=== PATIENT | male | born 1965 | race Caucasian/White ===

== ENCOUNTER 2017-06-07 20:11 | Emergency (ER) | payer OTHER ==
[2017-06-07] MEDS ORDERED: NS 0.9% 1000 ML* 1,000 ML IV ONE (20:46)
[2017-06-07] MEDS ORDERED: Meclizine TAB* 12.5 MG PO ONE (20:48)
[2017-06-07] MEDS ORDERED: Aspirin Low Dose CHEW TAB* 81 MG PO ONE (20:48)
[2017-06-07] MEDS ORDERED: Dexamethasone IV* 4 MG/ML 1 ML (4 MG) IV SLOW PU ONE (20:48)
[2017-06-07 20:58] LABS: ABS Basophils 0 10^3/ul (0-0.2); ABS Eosinophils 0.2 10^3/ul (0-0.6); ABS Lymphocytes 0.5 10^3/ul (1.0-4.8); ABS Monocytes 0.7 10^3/ul (0-0.8); ABS Neutrophils 5.7 10^3/ul (1.5-7.7); ABS Nucleated RBC 0 10^3/ul; Hematocrit 44 % (42-52); Hemoglobin 15.1 g/dl (14.0-18.0); Lymphocyte % 6.9 % (25-47); Mean Corpuscular HGB Conc 34 g/dl (31-36); Mean Corpuscular Hemoglobin 29 pg (27-31); Mean Corpuscular Volume 84 fL (80-94); Mean Platelet Volume 9 um3 (7.4-10.4); Nucleated Red Blood Cells % 0; Platelet Count 177 10^3/ul (150-450); Red Blood Count 5.22 10^6/ul (4.0-5.4); Red Cell Distribution Width 13 % (10.5-15); White Blood Count 7.1 10^3/ul (3.5-10.8)
[2017-06-07 21:13] LABS: EGFR Non-African American 133.7 (>60)
--- NOTE | 2017-06-07 21:16 | RAD ---
Indication: Chest pain radiating to the LEFT shoulder and LEFT upper back. Pressure more than pain. Comparison: No relevant prior exams available on the [facility] for comparison. Technique: Upright AP 2058 hours Report: Clear lungs and pleural spaces. Negative for pneumothorax. The heart, pulmonary vasculature, and mediastinal contours are unremarkable. Unremarkable osseous structures and soft tissue contours. IMPRESSION: No evidence for acute intrathoracic disease.
[2017-06-08 00:46] VITALS: BP 133/78
--- NOTE | 2017-06-08 04:53 | ED ---
Elpidio Guajardo Jennifer, scribed for Kevin Blancas MD on 06/07/17 at 2038 . HPI Chest Pain - HPI Summary HPI Summary: The pt is a 52 y/o male who presents to the ED with chest pressure beginning this morning that has worsened throughout the day. Pt reports the pressure is between the middle and upper left chest and radiates to his arm and neck. He says the pain is constant but the severity increases and decreases. Pt reports every once in a while there is a sharp pain under his shoulder blade. He complains of rotational dizziness upon change of position when his eyes are closed. 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 He additionally reports he has been winded tonight, but denies palpitations, trouble breathing, nausea, sweating, fever, and cough. - History of Current Complaint Chief Complaint: EDChestPainROMI Time Seen by Provider: 06/07/17 20:27 Hx Obtained From: Patient Onset/Duration: Started Hours Ago - This morning, Still Present Timing: Constant Initial Severity: Mild Current Severity: Mild Pain Intensity: 2 Pain Scale Used: 0-10 Numeric Chest Pain Location: Mid Sternal, Upper Sternal - Left side Chest Pain Radiates: Yes Chest Pain Radiates To:: Arm, Neck Character: Pressure/Squeezing, Sharp/Stabbing - Every once in a while Aggravating Factor(s): Exertion Alleviating Factor(s): Nothing Associated Signs and Symptoms: Positive: Other: - Rotational dizziness, feeling "winded". NEGATIVE: palpitations, trouble breathing, nausea, swearting, fever, and cough. - Allergy/Home Medications Allergies/Adverse Reactions: Allergies Allergy/AdvReac Type Severity Reaction Status Date / Time glatiramer (copolymer 1) Allergy Anaphylatic Verified 06/08/17 01:10 Shock mannitol Allergy Anaphylatic Verified 06/08/17 01:10 Shock meperidine [From Demerol] Allergy Vomiting Verified 06/08/17 01:10 PMH/Surg Hx/FS Hx/Imm Hx Endocrine/Hematology History: Denies: Hx Diabetes Cardiovascular History: Denies: Hx Hypertension, Hx Pacemaker/ICD Respiratory History: Reports: Hx Sleep Apnea - current CPAP user, compliance issues Denies: Hx Asthma History: Denies: Hx Dialysis, Hx Renal Disease Musculoskeletal History: Reports: Hx Tendonitis Sensory History: Reports: Hx Contacts or Glasses - READERS Denies: Hx Hearing Aid Opthamlomology History: Reports: Hx Contacts or Glasses - READERS Neurological History: Reports: Hx Headaches - FROM OPTIC NEURITIS IN 1981, Hx Nerve Disease - MS DIAGNOSED 2011, Other Neuro Impairments/Disorders - optic neuritis (left) 1981 (age 31); MS Psychiatric History: Denies: Hx Panic Disorder - Surgical History Surgery Procedure, Year, and Place: [facility] Hx Anesthesia Reactions: - N/A - Immunization History Date of Tetanus Vaccine: 2007 Infectious Disease History: No Infectious Disease History: Denies: Hx Clostridium Difficile, Traveled Outside the [place] in Last 30 Days - Family History Known Family History: Positive: Cardiac Disease, Other - Alzheimer's - mother Negative: Hypertension - Social History 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 Smoking Status (MU): Never Smoked Tobacco Review of Systems Negative: Fever, Skin Diaphoresis Positive: Chest Pain - Pressure. Negative: Palpitations Respiratory: Negative - Trouble breathing Positive: Other - Feeling winded. Negative: Cough Negative: Nausea Neurological: Other - Rotational dizziness All Other Systems Reviewed And Are Negative: Yes Physical Exam - Summary Physical Exam Summary: Appearance: Obese, no pain distress Skin: warm, dry, reflects adequate perfusion Head/face: normal Eyes: EOMI, KEN ENT: normal Neck: supple, non-tender Respiratory: CTA, breath sounds present Cardiovascular: RRR, pulses symmetrical Abdomen: non-tender, soft Bowel: present Musculoskeletal: normal, strength/ROM intact Neuro: Mild vertigo symptoms with Hallpike to the left side. No ataxia, no numbness or weakness. sensory motor intact, A&Ox3 Triage Information Reviewed: Yes Vital Signs On Initial Exam: Initial Vitals Temp Pulse Resp BP Pulse Ox 99.0 F 87 20 139/92 97 06/07/17 20:12 06/07/17 20:12 06/07/17 20:12 06/07/17 20:12 06/07/17 20:12 Vital Signs Reviewed: Yes Diagnostics - Vital Signs Vital Signs Temp Pulse Resp BP Pulse Ox 06/07/17 20:12 99.0 F 87 20 139/92 97 - Laboratory Lab Results: Lab Results 06/07/17 06/07/17 06/07/17 Range/Units 20:50 20:50 20:50 WBC 7.1 (3.5-10.8) 10^3/ul RBC 5.22 (4.0-5.4) 10^6/ul Hgb 15.1 (14.0-18.0) g/dl Hct 44 (42-52) % MCV 84 (80-94) fL MCH 29 (27-31) pg MCHC 34 (31-36) g/dl RDW 13 (10.5-15) % Plt Count 177 (150-450) 10^3/ul MPV 9 (7.4-10.4) um3 Neut % (Auto) 79.7 (38-83) % Lymph % (Auto) 6.9 L (25-47) % Bullock % (Auto) 10.2 H (0-7) % Eos % (Auto) 3.0 (0-6) % Baso % (Auto) 0.2 (0-2) % Absolute Neuts (auto) 5.7 (1.5-7.7) 10^3/ul Absolute Lymphs (auto) 0.5 L (1.0-4.8) 10^3/ul Absolute Monos (auto) 0.7 (0-0.8) 10^3/ul Absolute Eos (auto) 0.2 (0-0.6) 10^3/ul Absolute Basos (auto) 0 (0-0.2) 10^3/ul Absolute Nucleated RBC 0 10^3/ul Nucleated RBC % 0 Sodium 137 (133-145) mmol/L Potassium 3.8 (3.5-5.0) mmol/L Chloride 105 (101-111) mmol/L Carbon Dioxide 24 (22-32) mmol/L Anion Gap 8 (2-11) mmol/L BUN 11 (6-24) mg/dL Creatinine 0.63 L (0.67-1.17) mg/dL Est GFR ( Amer) 172.0 (>60) Est GFR (Non-Af Amer) 133.7 (>60) BUN/Creatinine Ratio 17.5 (8-20) Glucose 101 H (70-100) mg/dL Lactic Acid (0.5-2.0) mmol/L Calcium 9.4 (8.6-10.3) mg/dL Total Bilirubin 0.50 (0.2-1.0) mg/dL AST 19 (13-39) U/L ALT 19 (7-52) U/L Alkaline Phosphatase 62 (34-104) U/L Troponin I 0.00 (<0.04) ng/mL B-Natriuretic Peptide 17 ( - 100) pg/mL Total Protein 7.3 (6.4-8.9) g/dL Albumin 4.5 (3.2-5.2) g/dL Globulin 2.8 (2-4) g/dL Albumin/Globulin Ratio 1.6 (1-3) TSH 1.01 (0.34-5.60) mcIU/mL 06/07/17 06/07/17 Range/Units 20:50 23:30 WBC (3.5-10.8) 10^3/ul RBC (4.0-5.4) 10^6/ul Hgb (14.0-18.0) g/dl Hct (42-52) % MCV (80-94) fL MCH (27-31) pg MCHC (31-36) g/dl RDW (10.5-15) % Plt Count (150-450) 10^3/ul MPV (7.4-10.4) um3 Neut % (Auto) (38-83) % Lymph % (Auto) (25-47) % Bullock % (Auto) (0-7) % Eos % (Auto) (0-6) % Baso % (Auto) (0-2) % Absolute Neuts (auto) (1.5-7.7) 10^3/ul Absolute Lymphs (auto) (1.0-4.8) 10^3/ul Absolute Monos (auto) (0-0.8) 10^3/ul Absolute Eos (auto) (0-0.6) 10^3/ul Absolute Basos (auto) (0-0.2) 10^3/ul Absolute Nucleated RBC 10^3/ul Nucleated RBC % Sodium (133-145) mmol/L Potassium (3.5-5.0) mmol/L Chloride (101-111) mmol/L Carbon Dioxide (22-32) mmol/L Anion Gap (2-11) mmol/L BUN (6-24) mg/dL Creatinine (0.67-1.17) mg/dL Est GFR ( Amer) (>60) Est GFR (Non-Af Amer) (>60) BUN/Creatinine Ratio (8-20) Glucose (70-100) mg/dL Lactic Acid 0.9 (0.5-2.0) mmol/L Calcium (8.6-10.3) mg/dL Total Bilirubin (0.2-1.0) mg/dL AST (13-39) U/L ALT (7-52) U/L Alkaline Phosphatase (34-104) U/L Troponin I 0.00 (<0.04) ng/mL B-Natriuretic Peptide ( - 100) pg/mL Total Protein (6.4-8.9) g/dL Albumin (3.2-5.2) g/dL Globulin (2-4) g/dL Albumin/Globulin Ratio (1-3) TSH (0.34-5.60) mcIU/mL Result Diagrams: 06/07/17 20:50 06/07/17 20:50 Lab Statement: Any lab studies that have been ordered have been reviewed, and results considered in the medical decision making process. - Radiology CXR Xray Interpretation: No Acute Changes - No evidence for acute intrathoracic disease. Dr. Blancas has reviewed this report. Radiology Interpretation Completed By: Radiologist - EKG 20:19 Cardiac Rate: NL EKG Rhythm: Sinus Rhythm - [address] Segment: Normal EKG Interpretation: Normal axis, intervals, and ST segments Re-Evaluation - Re-Evaluation First Eval Re-Evaluation Time: 21:50 Change: Improved Comment: Pt reports he is feeling better. Chest Pain Course/Dx - Course Course Of Treatment: pt with a hx of MS. Mild vertigo with tightness in the L shoulder area. Trop x 2 and EKG are neg. Sx improved with IV fluids, steroid and meclizine. Will have f/u promptly with his neurologist. Did have similar sx with MS in past. - Chest Pain Differential Diagnosis/HQI/PQRI: Acute [place], ACS, Lower Respiratory Infection, Other: - peripheral vertigo, central vertigo, MS exac. - Diagnoses Provider Diagnoses: Vertigo, Atypical chest pain, History of multiple sclerosis Discharge - Discharge Plan Condition: Good Disposition: HOME Prescriptions: Meclizine HCl [Dramamine Less Drowsy] 25 mg PO Q6H PRN #30 tablet PRN Reason: Dizziness Patient Education Materials: Chest Pain (ED), Multiple Sclerosis (DC), Vertigo (ED) Referrals: Jean Carlos Stevens MD [Primary Care Provider] - Beena Acevedo MD [Medical Doctor] - Additional Instructions: Call first thing in the morning for an appt with neurologist and regular doctor. Stay well hydrated. Do not drive or operate machinery if you are having symptoms. Return if worse, chest pain, new symptoms, trouble walking or other concerns as discussed. The documentation as recorded by the Elpidio still Jennifer accurately reflects the service I personally performed and the decisions made by me, Kevin Blancas MD.
== END 2017-06-08 00:46 | disposition home or self-care (01) ==
LOC: ED 20:11
DX: R42 Dizziness and giddiness (principal); R07.89 Other chest pain; Z87.39 Personal history of other diseases of the musculoskeletal system and connective tissue
CPT/HCPCS: 36415; 71045; 80053; 83605; 83880; 84443; 84484; 85025; 93005; 96361; 96374; 99283; A9270-GY; J1100

== ENCOUNTER 2020-03-18 15:08 | Observation (INO) ==
[2020-03-18] MEDS ORDERED: methylPREDNISolone SOD SUCC 1000 MG ML VIAL IVPB ONE (15:54)
[2020-03-18 16:44] LABS: ABS Eosinophils 0.2 10^3/ul (0-0.6); ABS Lymphocytes 0.5 10^3/ul (1.0-4.8); ABS Monocytes 0.6 10^3/ul (0-0.8); ABS Neutrophils 4.2 10^3/ul (1.5-7.7); Eosinophil % 3.6 %; Hematocrit 43 % (42-52); Hemoglobin 14.9 g/dL (14.0-18.0); Lymphocyte % 8.8 %; Mean Corpuscular HGB Conc 35 g/dL (31-36); Mean Corpuscular Hemoglobin 30 pg (27-31); Mean Corpuscular Volume 85 fL (80-94); Mean Platelet Volume 8.6 fL (7.4-10.4); Platelet Count 187 10^3/uL (150-450); Red Blood Count 5.05 10^6 /uL (4.18-5.48); Red Cell Distribution Width 13 % (10-15); White Blood Count 5.4 10^3/uL (3.5-10.8)
[2020-03-18 17:03] LABS: Albumin 4.6 g/dL (3.2-5.2); Albumin/Globulin Ratio 1.8 (1-3); BUN/Creatinine Ratio 13.2 (8-20); Calcium 9.2 mg/dL (8.6-10.3); EGFR Non-African American 121.5 (>60); Globulin 2.5 g/dL (2-4); Potassium 3.6 mmol/L (3.5-5.0); Total Bilirubin 0.6 mg/dL (0.2-1.0); Total Protein 7.1 g/dL (6.4-8.9)
[2020-03-18 17:51] LABS: Vitamin D Total 25(OH) 24.1 ng/mL (20-50)
[2020-03-18] MEDS ORDERED: Enoxaparin 40 MG/0.4 ML SYR SUBCUT SCH (18:00)
[2020-03-18] MEDS ORDERED: Gadoteridol (CONTRAST) 279.3 MG/ML 10 ML IV ONE (19:59)
[2020-03-18] MEDS ORDERED: DIMETHYL FUMARATE PO SCH (21:00)
[2020-03-18] MEDS: DIMETHYL FUMARATE PO SCH (21:49)
[2020-03-19] MEDS ORDERED: methylPREDNISolone SOD SUCC 1,000 MG in NS 0.9% 250 ml 250 ML IVPB SCH (09:00)
[2020-03-19] MEDS: DIMETHYL FUMARATE PO SCH ×2 (09:54→21:04)
[2020-03-19] MEDS: methylPREDNISolone SOD SUCC 1,000 MG in NS 0.9% 250 ml 250 ML IVPB SCH (12:46)
[2020-03-19] MEDS ORDERED: Enoxaparin 40 MG/0.4 ML SYR SUBCUT SCH (21:30)
[2020-03-20 07:27] VITALS: BP 114/60
[2020-03-20] MEDS: DIMETHYL FUMARATE PO SCH (09:50)
[2020-03-20] MEDS: methylPREDNISolone SOD SUCC 1,000 MG in NS 0.9% 250 ml 250 ML IVPB SCH (09:50)
== END 2020-03-20 11:40 | disposition home or self-care (01) ==
LOC: ED 15:08 → MED 15:08
PROVIDERS: ADMIT Hospitalist; ATTEND Internal Medicine

== ENCOUNTER 2023-11-14 15:39 | Observation (INO) ==
[2023-11-14] MEDS ORDERED: methylPREDNISolone SOD 125 mg 1,000 MG in NS 0.9% 100 ml BAG 100 ML IV ONE (15:50)
[2023-11-14 18:08] LABS: Hematocrit 45.5 % (38-53); Hemoglobin 15.2 g/dL (13.2-16.3); Mean Corpuscular Hemoglobin 28.9 pg (27-33); Mean Corpuscular Hgb Conc 33.3 g/dL (31-36); Mean Corpuscular Volume 86.7 fL (80-97); Mean Platelet Volume 8.8 fL (7.5-11.2); Platelet Count 217 10^3/uL (150-450); Red Blood Count 5.25 10^6/uL (4.06-5.63); Red Cell Distribution Width 13.9 % (12-17)
[2023-11-14 18:42] LABS: ABS Eosinophils 0.1 10^3/uL (0.0-0.5); ABS Monocytes 1.6 10^3/uL (0.0-1.1); ABS Neutrophils 11.4 10^3/uL (1.5-7.6); ABS Nucleated RBC 0.01 10^3/ul; Eosinophil % 0.6 %; Lymphocyte % 6.8 %; Nucleated Red Blood Cells % 0.1 %/100WBC (0.0-0.8)
[2023-11-14] MEDS ORDERED: NS 0.9% IV ONE (19:00)
[2023-11-14] MEDS ORDERED: METHYLPREDNISOLONE SOD IV ONE (19:00)
[2023-11-14 19:02] LABS: Albumin 4.4 g/dL (3.2-5.2); Albumin/Globulin Ratio 2.2 (1-3); C Reactive Protein 1.25 mg/L (<8.01); Calcium 9.3 mg/dL (8.6-10.3); Creatinine, Serum 0.81 mg/dL (0.67-1.17); Potassium 3.7 mmol/L (3.5-5.0); Total Bilirubin 0.4 mg/dL (0.2-1.0); Total Protein 6.4 g/dL (6.4-8.9); eGFR CKD-EPI 102.2 (>60)
[2023-11-14] MEDS: methylPREDNISolone SOD SUCC 1000 MG in NS 0.9% 100 ML IVPB ONE (19:59)
[2023-11-15] MEDS: Enoxaparin 40 MG/0.4 ML SYR SUBCUT SCH (02:01)
[2023-11-15 11:40] LABS: Urine Appearance Clear; Urine Bilirubin Negative (Negative); Urine Blood Negative (Negative); Urine Color Light-Yellow; Urine Glucose 4+ (>=1000 mg/dL) (Negative); Urine Ketones 1+ (Negative); Urine Nitrite Negative (Negative); Urine Protein Negative (Negative); Urine Urobilinogen Negative (Negative); Urine pH 5.5 (5.0-8.0)
[2023-11-15 12:20] LABS: ABS Lymphocytes 0.5 10^3/uL (1.0-4.8); ABS Monocytes 0.3 10^3/uL (0.0-1.1); ABS Neutrophils 19.4 10^3/uL (1.5-7.6); Hematocrit 45.8 % (38-53); Hemoglobin 15.9 g/dL (13.2-16.3); Lymphocyte % 2.7 %; Mean Corpuscular Hemoglobin 29.8 pg (27-33); Mean Corpuscular Hgb Conc 34.7 g/dL (31-36); Mean Corpuscular Volume 85.9 fL (80-97); Mean Platelet Volume 8.8 fL (7.5-11.2); Platelet Count 225 10^3/uL (150-450); Red Blood Count 5.33 10^6/uL (4.06-5.63); White Blood Count 20.3 10^3/uL (3.6-10.2)
[2023-11-15 12:50] LABS: Calcium 9.4 mg/dL (8.6-10.3); Creatinine, Serum 0.74 mg/dL (0.67-1.17); Magnesium 2.2 mg/dL (1.9-2.7); Potassium 4.2 mmol/L (3.5-5.0)
[2023-11-15] MEDS: methylPREDNISolone SOD SUCC 1,000 MG in NS 0.9% 250 ml 250 ML IVPB ONE (15:08)
[2023-11-15] MEDS: Cyanocobalamin INJ 1,000 MCG/ML VIAL 1 ML VIAL IM ONE (16:31)
[2023-11-15] MEDS: Cyanocobalamin INJ 1,000 MCG/ML VIAL 1 ML VIAL IM SCH (17:36)
[2023-11-15] MEDS: Gadoteridol (CONTRAST) 279.3 MG/ML 10 ML IV ONE (22:42)
[2023-11-16] MEDS: Cyanocobalamin INJ 1,000 MCG/ML VIAL 1 ML VIAL IM SCH (07:24)
[2023-11-16] MEDS ORDERED: methylPREDNISolone SOD SUCC 1000 MG ML VIAL IVPB ONE (07:52)
[2023-11-16] MEDS: methylPREDNISolone SOD SUCC 1,000 MG in NS 0.9% 250 ml 250 ML IVPB ONE (08:52)
[2023-11-16 09:47] VITALS: BP 143/95
== END 2023-11-16 11:20 | disposition home or self-care (01) ==
LOC: MEDTELE 15:39 → ED 15:39 → MEDTELE 11-15 00:41 → SUATTDRO 11-15 00:59
PROVIDERS: ADMIT Internal Medicine; ATTEND Internal Medicine